=== PATIENT | female | born 1930 | race Caucasian/White ===

== ENCOUNTER 2022-03-30 01:45 | Inpatient (IN) | payer MEDICARE ==
[2022-03-30] MEDS ORDERED: Midazolam HCl 2 mg/2 ml Vial ONE (02:02)
[2022-03-30 02:13] LABS: #Basophils 0.1 10x3/uL (0.0-0.2); #Eosinphils 0.2 10x3/uL (0.0-0.5); #Monocytes 0.7 10x3/uL (0.0-1.1); #Neutrophils 6.2 10x3/uL (1.5-8.4); %Eosinophils 2.6 % (0.0-6.0); %Lymphocytes 17.9 % (18.0-47.0); %Monocytes 8.2 % (0.0-10.0); %Neutrophils 69.7 % (40.0-75.0); Hemoglobin 12.9 g/dL (12.0-15.5); Mean Corpuscular HGB CONC 33.7 g/dL (32.0-36.0); Mean Corpuscular Hemoglobin 31.5 pg (27.0-33.0); Mean Corpuscular Volume 93.6 fl (81.6-98.3); Mean Platelet Volume 9.8 fl (7.4-10.4); Platelet Count 234 10x3/uL (150-450); Red Blood Cell (RBC) Count 4.09 10x6/uL (3.90-5.03); White Blood Cell (WBC) Count 8.9 10x3/uL (3.5-10.5)
[2022-03-30 02:21] LABS: INR-International Normal Ratio 0.9; PTT 25.7 sec (22.0-33.0); Prothrombin Time 10.1 sec (9.5-12.1)
[2022-03-30 02:23] LABS: ALT (SGPT) 16 U/L (8-55); AST (SGOT) 30 U/L (5-34); Albumin 4.1 g/dL (3.4-4.8); Alkaline Phosphatase 72 U/L (40-110); Anion Gap 17 mmol/L (10-20); BUN (Urea Nitrogen) 19 mg/dL (9.8-20.1); Bilirubin, Total 0.8 mg/dL (0.2-1.2); Calc. Creatinine Clearance 0 mL/min (70-130); Calcium 9.5 mg/dL (7.8-10.44); Carbon Dioxide 24 mmol/L (23-31); Chloride 100 mmol/L (98-107); Estimated GFR 71; Globulin 2.8 g/dL (2.4-3.5); Glucose 99 mg/dL (83-110); Lipase 57 U/L (8-78); Magnesium 2.4 mg/dL (1.6-2.6); Potassium 4.1 mmol/L (3.5-5.1); Protein, Total 6.9 g/dL (5.8-8.1); Sodium 137 mmol/L (136-145)
[2022-03-30 02:42] LABS: CKMB 2.5 ng/mL (0-6.6)
[2022-03-30] MEDS ORDERED: Calcium Carbonate 500 MG ChewTAB PO PRN (04:33)
[2022-03-30] MEDS ORDERED: Ondansetron PF 4 MG/2 ML Vial IVP PRN (04:33)
[2022-03-30] MEDS ORDERED: HYDROcodone/Acetaminophen 5/325 mg Tablet PO PRN (04:33)
[2022-03-30] MEDS ORDERED: Sodium Chloride 0.9% 1,000 ML IV SCH (04:45)
[2022-03-30 06:21] LABS: Cardiac Risk 1.9 (Less than 4.5)
[2022-03-30 06:51] LABS: CKMB 20.8 ng/mL (0-6.6)
[2022-03-30 07:24] VITALS: BMI 18.8
[2022-03-30 08:07] LABS: SARS-CoV-2 NAA Rapid Test Not Detected (NotDetected)
[2022-03-30] MEDS ORDERED: Flecainide 50 MG TAB PO SCH (09:00)
[2022-03-30] MEDS ORDERED: Aspirin 81 mg Enteric Coated Tablet PO SCH (09:00)
[2022-03-30] MEDS ORDERED: Apixaban 5 MG TAB PO SCH (09:00)
[2022-03-30] MEDS ORDERED: Iopamidol 370 76% 100 ML VIAL ONE (10:17)
[2022-03-30] MEDS ORDERED: Enoxaparin Sodium 60 MG/0.6 ML SYRINGE ONE (10:37)
[2022-03-30 11:09] LABS: CKMB 35.2 ng/mL (0-6.6)
[2022-03-30] MEDS: Famotidine/PF 20 mg/2ml Vial SLOW IVP SCH (11:37)
[2022-03-30] MEDS: Nitroglycerin 2% Ointment 1 INCH/1 GM Packet TOP SCH ×2 (12:21→22:15)
[2022-03-30] MEDS ORDERED: Dronedarone HCl 400 MG TAB PO SCH ×2 (13:00→17:00)
[2022-03-30] MEDS: Enoxaparin Sodium 60 MG/0.6 ML SYRINGE SC SCH ×2 (13:35→22:15)
[2022-03-30 18:00] LABS: Bilirubin Neg (Negative); Blood, Urine 25 (Negative); Clarity Clear (Clear); Glucose, Urine (Dipstick) Normal (Negative); Ketone, Urine 15 mg/dL (Negative); Leukocyte Negative (Negative); Nitrite Negative (Negative); Protein, Urine (Dipstick) Negative (Neg-Trace); Urobilinogen Normal mg/dL (Less than 2)
[2022-03-30 18:21] LABS: Bacteria/HPF 1+ HPF (None Seen); Mucous/LPF 1+ LPF (<2+); RBC/HPF 0-3 HPF (0-3); Squamous Epithelial 0-3 HPF (0-3); WBC/HPF 0-3 HPF (0-3)
[2022-03-30] MEDS ORDERED: Lorazepam 2 MG/ML VIAL SLOW IVP SCH (18:45)
[2022-03-30] MEDS: Mometasone 200 MCG/Formoterol 5 MCG 120 PUFF INHALER INH SCH (19:00)
[2022-03-30] MEDS: Rosuvastatin 20 MG TAB PO SCH (22:15)
[2022-03-31] MEDS: Nitroglycerin 2% Ointment 1 INCH/1 GM Packet TOP SCH ×3 (05:43→21:39)
[2022-03-31] MEDS: Acetaminophen 325 MG TAB PO PRN ×2 (05:44→18:05)
[2022-03-31] MEDS ORDERED: Mometasone/Formoterol 200/5 60 PUFF INH SCH ×2 (08:15→18:30)
[2022-03-31] MEDS: Mometasone 200 MCG/Formoterol 5 MCG 120 PUFF INHALER INH SCH (08:50)
[2022-03-31] MEDS ORDERED: Amiodarone 200 MG TAB PO SCH (09:00)
[2022-03-31] MEDS: Enoxaparin Sodium 60 MG/0.6 ML SYRINGE SC SCH ×2 (10:12→21:36)
[2022-03-31] MEDS: Famotidine/PF 20 mg/2ml Vial SLOW IVP SCH (10:12)
[2022-03-31] MEDS: Dronedarone HCl 400 MG TAB PO SCH ×2 (10:12→18:05)
[2022-03-31] MEDS: Clopidogrel Bisulfate 75 MG TAB PO SCH (10:19)
[2022-03-31] MEDS: Rosuvastatin 20 MG TAB PO SCH (21:38)
[2022-04-01 03:50] VITALS: TEMP 98.1
[2022-04-01] MEDS: Acetaminophen 325 MG TAB PO PRN (05:43)
[2022-04-01] MEDS ORDERED: Levothyroxine Sodium 88 MCG TAB PO SCH (06:00)
[2022-04-01] MEDS: Nitroglycerin 2% Ointment 1 INCH/1 GM Packet TOP SCH (06:49)
[2022-04-01] MEDS: Clopidogrel Bisulfate 75 MG TAB PO SCH (08:50)
[2022-04-01] MEDS: Famotidine/PF 20 mg/2ml Vial SLOW IVP SCH (08:51)
[2022-04-01] MEDS: Dronedarone HCl 400 MG TAB PO SCH (08:51)
[2022-04-01] MEDS: Enoxaparin Sodium 60 MG/0.6 ML SYRINGE SC SCH (08:51)
[2022-04-01] MEDS ORDERED: predniSONE 5 MG TAB PO SCH (09:00)
[2022-04-01 11:48] VITALS: BP 109/54
== END 2022-04-01 12:32 | disposition home or self-care (01) | DRG 64 ==
LOC: CSHERS 01:45 → CSHTELE 07:17
PROVIDERS: ADMIT Student in an Organized Health Care Education/Training Program; ATTEND Internal Medicine
DX: I63.512 Cerebral infarction due to unspecified occlusion or stenosis of left middle cerebral artery (principal); I21.4 Non-ST elevation (NSTEMI) myocardial infarction; Z20.822 Contact with and (suspected) exposure to COVID-19; R47.01 Aphasia; I48.0 Paroxysmal atrial fibrillation; E03.9 Hypothyroidism, unspecified; Z66 Do not resuscitate; M06.9 Rheumatoid arthritis, unspecified; R29.810 Facial weakness; G83.21 Monoplegia of upper limb affecting right dominant side; R47.1 Dysarthria and anarthria; Z60.2 Problems related to living alone; E86.0 Dehydration; I34.1 Nonrheumatic mitral (valve) prolapse; M81.0 Age-related osteoporosis without current pathological fracture; K21.9 Gastro-esophageal reflux disease without esophagitis; J44.9 Chronic obstructive pulmonary disease, unspecified; Z90.49 Acquired absence of other specified parts of digestive tract; Z85.038 Personal history of other malignant neoplasm of large intestine; Z88.6 Allergy status to analgesic agent; Z79.01 Long term (current) use of anticoagulants; Z90.89 Acquired absence of other organs; Z98.41 Cataract extraction status, right eye; Z98.42 Cataract extraction status, left eye; Z82.49 Family history of ischemic heart disease and other diseases of the circulatory system; Z88.8 Allergy status to other drugs, medicaments and biological substances
CPT/HCPCS: 36415; 70450; 70496; 70498; 71045; 80053; 80061; 81001; 82553; 83690; 83735; 84439; 84443; 84484; 85025; 85610; 85730; 86850; 86900; 86901; 87040; 87086; 93005; 93010; 93306; 94664; J1650; J2060; J2250; J7050; J7512; Q9967; S0028; U0002

== ENCOUNTER 2022-04-21 23:14 | Inpatient (IN) | payer MEDICARE ==
[2022-04-21] MEDS ORDERED: Diltiazem 125 MG/25 ML ONE (23:50)
[2022-04-22 00:48] LABS: #Basophils 0.1 10x3/uL (0.0-0.2); #Eosinphils 0.9 10x3/uL (0.0-0.5); #Monocytes 0.9 10x3/uL (0.0-1.1); #Neutrophils 7.4 10x3/uL (1.5-8.4); %Basophils 0.6 % (0.0-2.0); %Eosinophils 8.7 % (0.0-6.0); %Lymphocytes 10.1 % (18.0-47.0); %Monocytes 8.3 % (0.0-10.0); %Neutrophils 71.8 % (40.0-75.0); Hemoglobin 12.4 g/dL (12.0-15.5); Mean Corpuscular HGB CONC 33.2 g/dL (32.0-36.0); Mean Corpuscular Hemoglobin 31.6 pg (27.0-33.0); Mean Corpuscular Volume 95.2 fl (81.6-98.3); Mean Platelet Volume 9.7 fl (7.4-10.4); Platelet Count 242 10x3/uL (150-450); RBC Distribution Width 15.1 % (11.5-14.5); Red Blood Cell (RBC) Count 3.92 10x6/uL (3.90-5.03); White Blood Cell (WBC) Count 10.3 10x3/uL (3.5-10.5)
[2022-04-22 01:02] LABS: ALT (SGPT) 18 U/L (8-55); AST (SGOT) 24 U/L (5-34); Albumin 3.8 g/dL (3.4-4.8); Alkaline Phosphatase 86 U/L (40-110); Anion Gap 15 mmol/L (10-20); BUN (Urea Nitrogen) 15 mg/dL (9.8-20.1); Bilirubin, Total 1.2 mg/dL (0.2-1.2); Calc. Creatinine Clearance 0 mL/min (70-130); Carbon Dioxide 23 mmol/L (23-31); Chloride 102 mmol/L (98-107); Estimated GFR 66; Globulin 2.7 g/dL (2.4-3.5); Glucose 105 mg/dL (83-110); Magnesium 2.5 mg/dL (1.6-2.6); Potassium 3.7 mmol/L (3.5-5.1); Protein, Total 6.5 g/dL (5.8-8.1); Sodium 136 mmol/L (136-145)
[2022-04-22 01:23] LABS: CKMB 1.5 ng/mL (0-6.6)
[2022-04-22 01:37] LABS: SARS-CoV-2 NAA Rapid Test Not Detected (NotDetected)
[2022-04-22] MEDS ORDERED: Guaifenesin DM 100-10/5 ML UDCUP PO PRN (01:51)
[2022-04-22] MEDS ORDERED: Ondansetron PF 4 MG/2 ML Vial IVP PRN (01:51)
[2022-04-22] MEDS ORDERED: Senokot S 8.6-50 MG TAB PO PRN (01:51)
[2022-04-22] MEDS ORDERED: Acetaminophen 325 MG TAB PO PRN (01:51)
[2022-04-22] MEDS ORDERED: Calcium Carbonate 500 MG ChewTAB PO PRN (01:51)
[2022-04-22] MEDS ORDERED: Digoxin 0.5 MG/2 ML AMP ONE (01:56)
[2022-04-22] MEDS ORDERED: Diltiazem 125 MG, Admixture Fee 1 EACH in Sodium Chloride 0.9% 100 ML IVPB SCH (03:00)
[2022-04-22] MEDS ORDERED: Potassium Chloride 20 MEQ TAB PO SCH (03:00)
[2022-04-22 03:37] VITALS: BMI 18.1
[2022-04-22 04:58] LABS: Anion Gap 17 mmol/L (10-20); BUN (Urea Nitrogen) 13 mg/dL (9.8-20.1); Calc. Creatinine Clearance 38 mL/min (70-130); Calcium 8.7 mg/dL (7.8-10.44); Carbon Dioxide 20 mmol/L (23-31); Chloride 102 mmol/L (98-107); Estimated GFR 75; Glucose 102 mg/dL (83-110); Potassium 3.8 mmol/L (3.5-5.1); Sodium 135 mmol/L (136-145)
[2022-04-22 05:13] LABS: CKMB 1.5 ng/mL (0-6.6)
[2022-04-22] MEDS: Levothyroxine Sodium 88 MCG TAB PO SCH (05:46)
[2022-04-22] MEDS: Budesonide 0.25 MG/2 ML NEB INH SCH ×2 (07:18→20:30)
[2022-04-22] MEDS: Furosemide 20 MG TAB PO SCH ×2 (08:10)
[2022-04-22] MEDS: predniSONE 5 MG TAB PO SCH (08:10)
[2022-04-22] MEDS: Clopidogrel Bisulfate 75 MG TAB PO SCH (08:10)
[2022-04-22] MEDS: Apixaban 2.5 MG TAB PO SCH ×2 (08:10→20:44)
[2022-04-22 08:59] LABS: CKMB 1.3 ng/mL (0-6.6)
[2022-04-22] MEDS ORDERED: Flecainide 50 MG TAB PO SCH ×2 (09:00→09:15)
[2022-04-22] MEDS: Flecainide 50 MG TAB PO SCH (20:45)
[2022-04-22] MEDS ORDERED: Rosuvastatin 20 MG TAB PO SCH (21:00)
[2022-04-23] MEDS ORDERED: Metoprolol Tartrate 5 MG/5 ML VIAL IVP SCH (03:30)
[2022-04-23 04:48] VITALS: BP 117/72; TEMP 98.1
[2022-04-23] MEDS: Levothyroxine Sodium 88 MCG TAB PO SCH (06:03)
[2022-04-23] MEDS: Budesonide 0.25 MG/2 ML NEB INH SCH (09:19)
[2022-04-23 09:44] LABS: Anion Gap 15 mmol/L (10-20); BUN (Urea Nitrogen) 11 mg/dL (9.8-20.1); Calc. Creatinine Clearance 38 mL/min (70-130); Calcium 8.6 mg/dL (7.8-10.44); Carbon Dioxide 20 mmol/L (23-31); Chloride 102 mmol/L (98-107); Estimated GFR 74; Glucose 111 mg/dL (83-110); Magnesium 2.2 mg/dL (1.6-2.6); Potassium 4.7 mmol/L (3.5-5.1); Sodium 132 mmol/L (136-145)
[2022-04-23] MEDS: Apixaban 2.5 MG TAB PO SCH (09:54)
[2022-04-23] MEDS: Clopidogrel Bisulfate 75 MG TAB PO SCH (09:54)
[2022-04-23] MEDS: Flecainide 50 MG TAB PO SCH (09:54)
[2022-04-23] MEDS: predniSONE 5 MG TAB PO SCH (09:54)
[2022-04-23] MEDS: Furosemide 20 MG TAB PO SCH (09:54)
[2022-04-23] MEDS ORDERED: Digoxin 0.5 MG/2 ML AMP SLOW IVP SCH (10:00)
== END 2022-04-23 15:40 | disposition home or self-care (01) | DRG 281 ==
LOC: CSHERS 23:14 → CSHIMCU 04-22 02:32
PROVIDERS: ADMIT Student in an Organized Health Care Education/Training Program; ATTEND Internal Medicine
PROC: 5A2204Z Restoration of Cardiac Rhythm, Single (ICD-10-PCS; principal; 2022-04-23)
DX: I48.0 Paroxysmal atrial fibrillation (principal); I21.A1 Myocardial infarction type 2; Z68.1 Body mass index [BMI] 19.9 or less, adult; M06.9 Rheumatoid arthritis, unspecified; E03.9 Hypothyroidism, unspecified; R63.6 Underweight; Z66 Do not resuscitate; N18.2 Chronic kidney disease, stage 2 (mild); Z20.822 Contact with and (suspected) exposure to COVID-19; I08.0 Rheumatic disorders of both mitral and aortic valves; J44.9 Chronic obstructive pulmonary disease, unspecified; Z88.5 Allergy status to narcotic agent; Z79.01 Long term (current) use of anticoagulants; Z79.899 Other long term (current) drug therapy; Z86.73 Personal history of transient ischemic attack (TIA), and cerebral infarction without residual deficits; Z85.038 Personal history of other malignant neoplasm of large intestine; Z98.890 Other specified postprocedural states
CPT/HCPCS: 36415; 71045; 80048; 80053; 82553; 83735; 83880; 84484; 85025; 92960; 93005; 94640; 94760; 96374; 96375; 96376; J1160; J3490; J7512; J7626; U0002

== ENCOUNTER 2022-04-26 21:52 | Inpatient (IN) | payer MEDICARE ==
[2022-04-26 23:14] LABS: #Basophils 0.1 10x3/uL (0.0-0.2); #Eosinphils 0.3 10x3/uL (0.0-0.5); #Monocytes 0.7 10x3/uL (0.0-1.1); #Neutrophils 6.6 10x3/uL (1.5-8.4); %Basophils 0.8 % (0.0-2.0); %Eosinophils 3.5 % (0.0-6.0); %Lymphocytes 6.9 % (18.0-47.0); %Monocytes 8.8 % (0.0-10.0); %Neutrophils 79.6 % (40.0-75.0); Hemoglobin 11.7 g/dL (12.0-15.5); Mean Corpuscular HGB CONC 33.3 g/dL (32.0-36.0); Mean Corpuscular Hemoglobin 30.9 pg (27.0-33.0); Mean Corpuscular Volume 92.6 fl (81.6-98.3); Mean Platelet Volume 9.4 fl (7.4-10.4); Platelet Count 291 10x3/uL (150-450); RBC Distribution Width 14.6 % (11.5-14.5); Red Blood Cell (RBC) Count 3.79 10x6/uL (3.90-5.03); White Blood Cell (WBC) Count 8.3 10x3/uL (3.5-10.5)
[2022-04-26 23:22] LABS: ALT (SGPT) 63 U/L (8-55); AST (SGOT) 66 U/L (5-34); Albumin 3.5 g/dL (3.4-4.8); Alkaline Phosphatase 141 U/L (40-110); Anion Gap 15 mmol/L (10-20); BUN (Urea Nitrogen) 17 mg/dL (9.8-20.1); Calc. Creatinine Clearance 0 mL/min (70-130); Carbon Dioxide 26 mmol/L (23-31); Chloride 98 mmol/L (98-107); Estimated GFR 57; Globulin 2.7 g/dL (2.4-3.5); Glucose 115 mg/dL (83-110); Potassium 3.7 mmol/L (3.5-5.1); Protein, Total 6.2 g/dL (5.8-8.1); Sodium 135 mmol/L (136-145)
[2022-04-26] MEDS ORDERED: Diltiazem 125 MG/25 ML ONE (23:32)
[2022-04-26 23:47] LABS: SARS-CoV-2 NAA Rapid Test Not Detected (NotDetected)
[2022-04-27 02:07] LABS: Magnesium 2.4 mg/dL (1.6-2.6)
[2022-04-27] MEDS ORDERED: Milk Of Magnesia 30 ML UDCUP PO PRN (02:24)
[2022-04-27] MEDS ORDERED: Diltiazem 125 MG in Sodium Chloride 0.9% 100 ML IVPB SCH (02:30)
[2022-04-27] MEDS ORDERED: Apixaban 2.5 MG TAB PO SCH (02:30)
[2022-04-27 02:41] VITALS: BMI 16.9
[2022-04-27] MEDS ORDERED: Potassium Chloride 20 MEQ TAB PO SCH (03:15)
[2022-04-27 03:16] LABS: Troponin I 0.018 ng/mL (< 0.028)
[2022-04-27] MEDS: Levothyroxine Sodium 88 MCG TAB PO SCH (05:49)
[2022-04-27 07:21] LABS: #Basophils 0.1 10x3/uL (0.0-0.2); #Monocytes 0.5 10x3/uL (0.0-1.1); #Neutrophils 7.2 10x3/uL (1.5-8.4); %Basophils 0.6 % (0.0-2.0); %Eosinophils 0.2 % (0.0-6.0); %Neutrophils 86.8 % (40.0-75.0); Hemoglobin 11.4 g/dL (12.0-15.5); Mean Corpuscular HGB CONC 33.1 g/dL (32.0-36.0); Mean Corpuscular Hemoglobin 30.9 pg (27.0-33.0); Mean Corpuscular Volume 93.2 fl (81.6-98.3); Mean Platelet Volume 9.5 fl (7.4-10.4); Platelet Count 298 10x3/uL (150-450); RBC Distribution Width 14.6 % (11.5-14.5); Red Blood Cell (RBC) Count 3.69 10x6/uL (3.90-5.03); White Blood Cell (WBC) Count 8.3 10x3/uL (3.5-10.5)
[2022-04-27 07:34] LABS: Anion Gap 14 mmol/L (10-20); BUN (Urea Nitrogen) 14 mg/dL (9.8-20.1); Calc. Creatinine Clearance 37 mL/min (70-130); Calcium 8.9 mg/dL (7.8-10.44); Carbon Dioxide 24 mmol/L (23-31); Chloride 101 mmol/L (98-107); Estimated GFR 79; Glucose 105 mg/dL (83-110); Potassium 4.6 mmol/L (3.5-5.1); Sodium 134 mmol/L (136-145)
[2022-04-27 07:37] LABS: Troponin I 0.023 ng/mL (< 0.028)
[2022-04-27] MEDS ORDERED: Flecainide 50 MG TAB PO SCH (09:00)
[2022-04-27] MEDS: predniSONE 5 MG TAB PO SCH (09:25)
[2022-04-27] MEDS: Clopidogrel Bisulfate 75 MG TAB PO SCH (09:25)
[2022-04-27] MEDS: Apixaban 2.5 MG TAB PO SCH ×2 (09:25→20:52)
[2022-04-27] MEDS: Rosuvastatin 20 MG TAB PO SCH (20:52)
[2022-04-28] MEDS ORDERED: Diltiazem 125 MG in Sodium Chloride 0.9% 100 ML IVPB SCH (02:00)
[2022-04-28] MEDS ORDERED: ALPRAZolam 0.25 MG TAB PO SCH (03:15)
[2022-04-28] MEDS ORDERED: Digoxin 0.5 MG/2 ML AMP SLOW IVP SCH (03:30)
[2022-04-28] MEDS: Diltiazem 125 MG in Sodium Chloride 0.9% 100 ML IVPB SCH ×2 (03:44→19:29)
[2022-04-28] MEDS ORDERED: Morphine 2 MG/ML VIAL SLOW IVP SCH (05:00)
[2022-04-28 05:14] LABS: Troponin I 0.013 ng/mL (< 0.028)
[2022-04-28 05:25] LABS: #Basophils 0.1 10x3/uL (0.0-0.2); #Eosinphils 0.4 10x3/uL (0.0-0.5); #Monocytes 0.7 10x3/uL (0.0-1.1); %Basophils 0.9 % (0.0-2.0); %Eosinophils 3.2 % (0.0-6.0); %Monocytes 5.8 % (0.0-10.0); %Neutrophils 79.6 % (40.0-75.0); Hemoglobin 13.2 g/dL (12.0-15.5); Mean Corpuscular HGB CONC 33.2 g/dL (32.0-36.0); Mean Corpuscular Hemoglobin 31.3 pg (27.0-33.0); Mean Corpuscular Volume 94.1 fl (81.6-98.3); Mean Platelet Volume 9.5 fl (7.4-10.4); Platelet Count 395 10x3/uL (150-450); RBC Distribution Width 14.9 % (11.5-14.5); Red Blood Cell (RBC) Count 4.22 10x6/uL (3.90-5.03); White Blood Cell (WBC) Count 11.3 10x3/uL (3.5-10.5)
[2022-04-28 05:47] LABS: Anion Gap 16 mmol/L (10-20); BUN (Urea Nitrogen) 15 mg/dL (9.8-20.1); Calc. Creatinine Clearance 34 mL/min (70-130); Carbon Dioxide 23 mmol/L (23-31); Chloride 102 mmol/L (98-107); Estimated GFR 70; Glucose 118 mg/dL (83-110); Magnesium 2.2 mg/dL (1.6-2.6); Sodium 137 mmol/L (136-145)
[2022-04-28] MEDS: Levothyroxine Sodium 88 MCG TAB PO SCH (06:26)
[2022-04-28] MEDS: Dofetilide 0.125 MG CAP PO SCH ×2 (08:31→21:11)
[2022-04-28] MEDS: Acetaminophen 325 MG TAB PO PRN (08:31)
[2022-04-28] MEDS: Clopidogrel Bisulfate 75 MG TAB PO SCH (08:32)
[2022-04-28] MEDS: Apixaban 2.5 MG TAB PO SCH ×2 (08:32→21:11)
[2022-04-28] MEDS: predniSONE 5 MG TAB PO SCH (08:32)
[2022-04-28] MEDS ORDERED: Lidocaine 5% Patch TD SCH (10:00)
[2022-04-28] MEDS: HYDROcodone/Acetaminophen 5/325 mg Tablet PO PRN (10:26)
[2022-04-28] MEDS: Lidocaine 2% Viscous Solution 10 ML, Aluminum & Magnesium Hydroxide 30 ML SSW SCH ×2 (10:34→13:51)
[2022-04-28] MEDS: Rosuvastatin 20 MG TAB PO SCH (21:11)
[2022-04-28] MEDS ORDERED: Transdermal Patch Removal TOP SCH (22:00)
[2022-04-29] MEDS: Levothyroxine Sodium 88 MCG TAB PO SCH (05:22)
[2022-04-29] MEDS: Morphine 2 MG/ML VIAL SLOW IVP PRN ×2 (05:23→10:05)
[2022-04-29] MEDS: Apixaban 2.5 MG TAB PO SCH ×2 (09:12→21:03)
[2022-04-29] MEDS: Clopidogrel Bisulfate 75 MG TAB PO SCH (09:12)
[2022-04-29] MEDS: Dofetilide 0.125 MG CAP PO SCH ×2 (09:12→21:03)
[2022-04-29] MEDS: predniSONE 5 MG TAB PO SCH (09:12)
[2022-04-29] MEDS: Acetaminophen 325 MG TAB PO PRN (09:26)
[2022-04-29] MEDS ORDERED: Lidocaine 5% Patch TD SCH (10:00)
[2022-04-29] MEDS ORDERED: Meloxicam 7.5 MG TAB PO SCH (11:00)
[2022-04-29] MEDS: Diltiazem 125 MG in Sodium Chloride 0.9% 100 ML IVPB SCH (11:00)
[2022-04-29] MEDS ORDERED: Lorazepam 20 MG/10 ML MDV (1ml Chg) IVP SCH (15:45)
[2022-04-29] MEDS ORDERED: Iopamidol 370 76% 100 ML VIAL ONE (16:11)
[2022-04-29 18:27] LABS: #Neutrophils 12.3 10x3/uL (1.5-8.4); %Basophils 0.2 % (0.0-2.0); %Eosinophils 0.1 % (0.0-6.0); %Lymphocytes 3.9 % (18.0-47.0); %Monocytes 7.4 % (0.0-10.0); Hemoglobin 11.8 g/dL (12.0-15.5); Mean Corpuscular HGB CONC 33.1 g/dL (32.0-36.0); Mean Corpuscular Volume 93.4 fl (81.6-98.3); Mean Platelet Volume 9.7 fl (7.4-10.4); Platelet Count 332 10x3/uL (150-450); RBC Distribution Width 14.8 % (11.5-14.5); Red Blood Cell (RBC) Count 3.81 10x6/uL (3.90-5.03)
[2022-04-29 18:39] LABS: ALT (SGPT) 58 U/L (8-55); AST (SGOT) 37 U/L (5-34); Albumin 3.3 g/dL (3.4-4.8); Alkaline Phosphatase 117 U/L (40-110); Anion Gap 16 mmol/L (10-20); BUN (Urea Nitrogen) 21 mg/dL (9.8-20.1); Bilirubin, Total 0.9 mg/dL (0.2-1.2); Calc. Creatinine Clearance 32 mL/min (70-130); Calcium 8.4 mg/dL (7.8-10.44); Carbon Dioxide 19 mmol/L (23-31); Chloride 99 mmol/L (98-107); Estimated GFR 65; Globulin 2.5 g/dL (2.4-3.5); Glucose 133 mg/dL (83-110); Magnesium 2.5 mg/dL (1.6-2.6); Potassium 4.7 mmol/L (3.5-5.1); Protein, Total 5.8 g/dL (5.8-8.1); Sodium 129 mmol/L (136-145)
[2022-04-29] MEDS: Rosuvastatin 20 MG TAB PO SCH (21:02)
[2022-04-29] MEDS: Melatonin 3 MG TAB PO PRN (21:04)
[2022-04-29] MEDS ORDERED: Transdermal Patch Removal TOP SCH (22:00)
[2022-04-30] MEDS: Acetaminophen 325 MG TAB PO PRN (02:03)
[2022-04-30] MEDS: Diltiazem 125 MG in Sodium Chloride 0.9% 100 ML IVPB SCH ×2 (02:31→22:17)
[2022-04-30] MEDS: Levothyroxine Sodium 88 MCG TAB PO SCH (06:13)
[2022-04-30] MEDS ORDERED: Furosemide 40 MG/4 ML VIAL SLOW IVP SCH (08:00)
[2022-04-30] MEDS: Apixaban 2.5 MG TAB PO SCH ×2 (08:13→20:51)
[2022-04-30] MEDS: Clopidogrel Bisulfate 75 MG TAB PO SCH (08:13)
[2022-04-30] MEDS: Dofetilide 0.125 MG CAP PO SCH ×2 (08:13→20:51)
[2022-04-30] MEDS: predniSONE 10 MG TAB PO SCH (08:17)
[2022-04-30] MEDS: Meloxicam 7.5 MG TAB PO SCH (09:01)
[2022-04-30] MEDS ORDERED: Metoprolol Tartrate 25 MG TAB PO SCH (13:30)
[2022-04-30] MEDS ORDERED: ALPRAZolam 0.5 MG TAB PO SCH (20:30)
[2022-04-30] MEDS: Melatonin 3 MG TAB PO PRN (20:51)
[2022-04-30] MEDS: Rosuvastatin 20 MG TAB PO SCH (20:51)
[2022-04-30] MEDS: Metoprolol Tartrate 25 MG TAB PO SCH (20:51)
[2022-05-01] MEDS: Levothyroxine Sodium 88 MCG TAB PO SCH (06:19)
[2022-05-01] MEDS: Acetaminophen 325 MG TAB PO PRN (08:34)
[2022-05-01] MEDS: Dofetilide 0.125 MG CAP PO SCH ×2 (08:37→20:11)
[2022-05-01] MEDS: predniSONE 10 MG TAB PO SCH (08:38)
[2022-05-01] MEDS: Clopidogrel Bisulfate 75 MG TAB PO SCH (08:38)
[2022-05-01] MEDS: Apixaban 2.5 MG TAB PO SCH ×2 (08:38→21:23)
[2022-05-01] MEDS: Furosemide 40 MG/4 ML VIAL SLOW IVP SCH (08:39)
[2022-05-01] MEDS: Metoprolol Tartrate 25 MG TAB PO SCH ×2 (08:39→20:09)
[2022-05-01] MEDS: Meloxicam 7.5 MG TAB PO SCH (08:40)
[2022-05-01 14:53] LABS: Hemoglobin 12.3 g/dL (12.0-15.5); Mean Corpuscular HGB CONC 32.9 g/dL (32.0-36.0); Mean Corpuscular Hemoglobin 30.8 pg (27.0-33.0); Mean Corpuscular Volume 93.7 fl (81.6-98.3); Mean Platelet Volume 9.6 fl (7.4-10.4); Platelet Count 404 10x3/uL (150-450); RBC Distribution Width 14.7 % (11.5-14.5); Red Blood Cell (RBC) Count 3.99 10x6/uL (3.90-5.03); White Blood Cell (WBC) Count 11.7 10x3/uL (3.5-10.5)
[2022-05-01 15:19] LABS: Anion Gap 17 mmol/L (10-20); BUN (Urea Nitrogen) 22 mg/dL (9.8-20.1); Calc. Creatinine Clearance 29 mL/min (70-130); Calcium 8.6 mg/dL (7.8-10.44); Carbon Dioxide 23 mmol/L (23-31); Chloride 98 mmol/L (98-107); Estimated GFR 59; Glucose 128 mg/dL (83-110); Magnesium 2.3 mg/dL (1.6-2.6); Potassium 3.5 mmol/L (3.5-5.1); Sodium 134 mmol/L (136-145)
[2022-05-01 17:38] LABS: Bilirubin Neg (Negative); Blood, Urine Negative (Negative); Clarity Clear (Clear); Glucose, Urine (Dipstick) Normal (Negative); Ketone, Urine Negative (Negative); Leukocyte Negative (Negative); Nitrite Negative (Negative); Protein, Urine (Dipstick) Negative (Neg-Trace); Urobilinogen Normal mg/dL (Less than 2)
[2022-05-01 17:40] LABS: Urine Culture Reflex No No
[2022-05-01 17:55] LABS: RBC/HPF None Seen HPF (0-3); Squamous Epithelial 0-3 HPF (0-3); WBC/HPF 0-3 HPF (0-3)
[2022-05-01 17:56] LABS: Bacteria/HPF 2+ HPF (None Seen); Transitional Epithelial 0-3 HPF (None Seen)
[2022-05-01] MEDS: Rosuvastatin 20 MG TAB PO SCH (20:10)
[2022-05-01] MEDS: Melatonin 3 MG TAB PO PRN (22:59)
[2022-05-02] MEDS ORDERED: Metoprolol Tartrate 25 MG TAB PO SCH (01:45)
[2022-05-02] MEDS ORDERED: Metoprolol Tartrate 5 MG/5 ML VIAL IVP SCH (06:45)
[2022-05-02] MEDS: Levothyroxine Sodium 88 MCG TAB PO SCH (06:50)
[2022-05-02] MEDS: Clopidogrel Bisulfate 75 MG TAB PO SCH (07:26)
[2022-05-02] MEDS: Meloxicam 7.5 MG TAB PO SCH (07:26)
[2022-05-02] MEDS: Metoprolol Tartrate 25 MG TAB PO SCH ×4 (07:32→20:26)
[2022-05-02] MEDS: Apixaban 2.5 MG TAB PO SCH ×2 (07:32→20:26)
[2022-05-02] MEDS: predniSONE 5 MG TAB PO SCH (07:32)
[2022-05-02] MEDS: Dofetilide 0.125 MG CAP PO SCH ×2 (07:33→20:26)
[2022-05-02] MEDS ORDERED: Digoxin 0.5 MG/2 ML AMP SLOW IVP SCH (08:30)
[2022-05-02] MEDS ORDERED: Potassium Chloride 20 MEQ TAB PO SCH (09:15)
[2022-05-02] MEDS ORDERED: PROPOFOL 20 ML ONE (09:43)
[2022-05-02] MEDS: Furosemide 40 MG/4 ML VIAL SLOW IVP SCH (14:17)
[2022-05-02] MEDS: Calcium Carbonate 500 MG ChewTAB PO PRN (19:53)
[2022-05-02] MEDS: Rosuvastatin 20 MG TAB PO SCH (20:27)
[2022-05-02] MEDS: Melatonin 3 MG TAB PO PRN (23:44)
[2022-05-03] MEDS: Calcium Carbonate 500 MG ChewTAB PO PRN ×2 (03:43→15:02)
[2022-05-03] MEDS: Levothyroxine Sodium 88 MCG TAB PO SCH (05:41)
[2022-05-03] MEDS: HYDROcodone/Acetaminophen 5/325 mg Tablet PO PRN (05:41)
[2022-05-03] MEDS ORDERED: Digoxin 0.5 MG/2 ML AMP SLOW IVP SCH (07:45)
[2022-05-03] MEDS: predniSONE 5 MG TAB PO SCH (08:37)
[2022-05-03] MEDS: Apixaban 2.5 MG TAB PO SCH ×2 (08:37→20:28)
[2022-05-03] MEDS: Metoprolol Tartrate 25 MG TAB PO SCH ×3 (08:37→20:28)
[2022-05-03] MEDS: Dofetilide 0.125 MG CAP PO SCH (08:38)
[2022-05-03] MEDS: Meloxicam 7.5 MG TAB PO SCH (08:38)
[2022-05-03] MEDS: Clopidogrel Bisulfate 75 MG TAB PO SCH (08:38)
[2022-05-03] MEDS: Diltiazem 125 MG in Sodium Chloride 0.9% 100 ML IVPB SCH (09:00)
[2022-05-03 10:05] LABS: Potassium 4.4 mmol/L (3.5-5.1)
[2022-05-03 10:24] LABS: Anion Gap 14 mmol/L (10-20); BUN (Urea Nitrogen) 26 mg/dL (9.8-20.1); Calc. Creatinine Clearance 30 mL/min (70-130); Calcium 8.2 mg/dL (7.8-10.44); Carbon Dioxide 22 mmol/L (23-31); Chloride 100 mmol/L (98-107); Estimated GFR 61; Glucose 119 mg/dL (83-110); Potassium 4.5 mmol/L (3.5-5.1); Sodium 131 mmol/L (136-145)
[2022-05-03] MEDS: Rosuvastatin 20 MG TAB PO SCH (20:28)
[2022-05-03] MEDS: Melatonin 3 MG TAB PO PRN (21:02)
[2022-05-04] MEDS: Acetaminophen 325 MG TAB PO PRN (04:58)
[2022-05-04] MEDS: Levothyroxine Sodium 88 MCG TAB PO SCH (05:02)
[2022-05-04 06:38] LABS: Anion Gap 16 mmol/L (10-20); BUN (Urea Nitrogen) 23 mg/dL (9.8-20.1); Calc. Creatinine Clearance 33 mL/min (70-130); Calcium 8.4 mg/dL (7.8-10.44); Carbon Dioxide 22 mmol/L (23-31); Chloride 99 mmol/L (98-107); Estimated GFR 68; Glucose 102 mg/dL (83-110); Magnesium 2.5 mg/dL (1.6-2.6); Potassium 4.8 mmol/L (3.5-5.1); Sodium 132 mmol/L (136-145)
[2022-05-04] MEDS: Metoprolol Tartrate 25 MG TAB PO SCH ×3 (08:53→21:32)
[2022-05-04] MEDS: Apixaban 2.5 MG TAB PO SCH ×2 (08:53→21:31)
[2022-05-04] MEDS: Clopidogrel Bisulfate 75 MG TAB PO SCH (08:54)
[2022-05-04] MEDS: Digoxin 0.125 MG TAB PO SCH (08:59)
[2022-05-04] MEDS: Meloxicam 7.5 MG TAB PO SCH (08:59)
[2022-05-04] MEDS: predniSONE 5 MG TAB PO SCH (08:59)
[2022-05-04] MEDS: cefTRIAXone\\ROCEPHIN 1 GM in Sodium Chloride 0.9% 100 ML IVPB SCH (11:09)
[2022-05-04] MEDS: Melatonin 3 MG TAB PO PRN (21:31)
[2022-05-04] MEDS: Rosuvastatin 20 MG TAB PO SCH (21:32)
[2022-05-04] MEDS: Famotidine 20 MG TAB PO SCH (21:32)
[2022-05-05] MEDS: Levothyroxine Sodium 88 MCG TAB PO SCH ×2 (05:44→05:48)
[2022-05-05] MEDS: Meloxicam 7.5 MG TAB PO SCH (09:01)
[2022-05-05] MEDS: predniSONE 5 MG TAB PO SCH (09:01)
[2022-05-05] MEDS: Apixaban 2.5 MG TAB PO SCH ×2 (09:01→22:00)
[2022-05-05] MEDS: Digoxin 0.125 MG TAB PO SCH (09:01)
[2022-05-05] MEDS: Clopidogrel Bisulfate 75 MG TAB PO SCH (09:01)
[2022-05-05] MEDS: Metoprolol Tartrate 25 MG TAB PO SCH ×2 (09:02→22:00)
[2022-05-05] MEDS: cefTRIAXone\\ROCEPHIN 1 GM in Sodium Chloride 0.9% 100 ML IVPB SCH (09:03)
[2022-05-05] MEDS ORDERED: Chloraseptic Spray 180 ml Bottle PO PRN (09:43)
[2022-05-05] MEDS ORDERED: Cepastat Lozenges 1 LOZ PO PRN (09:43)
[2022-05-05] MEDS: Acetaminophen 325 MG TAB PO PRN (17:55)
[2022-05-05] MEDS: Famotidine 20 MG TAB PO SCH (22:00)
[2022-05-05] MEDS: Rosuvastatin 20 MG TAB PO SCH (22:00)
[2022-05-05] MEDS: Mirtazapine 15 MG TAB PO SCH (22:00)
[2022-05-06] MEDS: Apixaban 2.5 MG TAB PO SCH ×2 (09:58→22:14)
[2022-05-06] MEDS: Digoxin 0.125 MG TAB PO SCH (10:00)
[2022-05-06] MEDS: Clopidogrel Bisulfate 75 MG TAB PO SCH (10:01)
[2022-05-06] MEDS: Metoprolol Tartrate 25 MG TAB PO SCH ×2 (10:02→22:15)
[2022-05-06] MEDS: Meloxicam 7.5 MG TAB PO SCH (10:10)
[2022-05-06] MEDS: predniSONE 5 MG TAB PO SCH (10:11)
[2022-05-06] MEDS: cefTRIAXone\\ROCEPHIN 1 GM in Sodium Chloride 0.9% 100 ML IVPB SCH (10:12)
[2022-05-06] MEDS: guaiFENesin ER 600 MG TAB PO SCH (22:15)
[2022-05-06] MEDS: Rosuvastatin 20 MG TAB PO SCH (22:15)
[2022-05-06] MEDS: Mirtazapine 15 MG TAB PO SCH (22:15)
[2022-05-06] MEDS: Famotidine 20 MG TAB PO SCH (22:15)
[2022-05-07] MEDS: Levothyroxine Sodium 88 MCG TAB PO SCH (05:34)
[2022-05-07] MEDS: predniSONE 5 MG TAB PO SCH (08:35)
[2022-05-07] MEDS: guaiFENesin ER 600 MG TAB PO SCH (08:35)
[2022-05-07] MEDS: Meloxicam 7.5 MG TAB PO SCH (08:36)
[2022-05-07] MEDS: Apixaban 2.5 MG TAB PO SCH (08:36)
[2022-05-07] MEDS: Digoxin 0.125 MG TAB PO SCH (08:37)
[2022-05-07] MEDS: Clopidogrel Bisulfate 75 MG TAB PO SCH (08:37)
[2022-05-07] MEDS: Metoprolol Tartrate 25 MG TAB PO SCH (08:39)
[2022-05-07 08:40] VITALS: TEMP 98.2
[2022-05-07] MEDS: cefTRIAXone\\ROCEPHIN 1 GM in Sodium Chloride 0.9% 100 ML IVPB SCH (08:48)
[2022-05-07 11:36] LABS: Anion Gap 15 mmol/L (10-20); BUN (Urea Nitrogen) 28 mg/dL (9.8-20.1); Calc. Creatinine Clearance 26 mL/min (70-130); Calcium 8.4 mg/dL (7.8-10.44); Carbon Dioxide 23 mmol/L (23-31); Chloride 100 mmol/L (98-107); Estimated GFR 51; Glucose 95 mg/dL (83-110); Magnesium 2.5 mg/dL (1.6-2.6); Potassium 4.6 mmol/L (3.5-5.1); Sodium 133 mmol/L (136-145)
[2022-05-07 11:41] VITALS: BP 112/52
== END 2022-05-07 16:47 | DRG 309 ==
LOC: CSHERS 21:52 → CSHTELE 04-27 02:34
PROVIDERS: ADMIT Family Medicine; ATTEND Family Medicine
PROC: 5A2204Z Restoration of Cardiac Rhythm, Single (ICD-10-PCS; principal; 2022-05-02)
DX: I48.19 Other persistent atrial fibrillation (principal); I31.3 Pericardial effusion (noninflammatory); I50.32 Chronic diastolic (congestive) heart failure; N39.0 Urinary tract infection, site not specified; I48.0 Paroxysmal atrial fibrillation; E03.9 Hypothyroidism, unspecified; I48.92 Unspecified atrial flutter; I08.3 Combined rheumatic disorders of mitral, aortic and tricuspid valves; J44.9 Chronic obstructive pulmonary disease, unspecified; F40.240 Claustrophobia; K21.9 Gastro-esophageal reflux disease without esophagitis; Z20.822 Contact with and (suspected) exposure to COVID-19; M81.0 Age-related osteoporosis without current pathological fracture; Z90.49 Acquired absence of other specified parts of digestive tract; Z98.42 Cataract extraction status, left eye; Z98.41 Cataract extraction status, right eye; Z88.5 Allergy status to narcotic agent; Z88.8 Allergy status to other drugs, medicaments and biological substances; Z79.01 Long term (current) use of anticoagulants; Z79.899 Other long term (current) drug therapy; Z86.73 Personal history of transient ischemic attack (TIA), and cerebral infarction without residual deficits; I25.2 Old myocardial infarction
CPT/HCPCS: 36415; 71045; 71275; 80048; 80053; 81001; 83735; 84132; 84443; 84484; 85025; 85027; 87086; 87811; 92960; 93005; 93010; 93306; 96365; 96366; 96376; J0696; J1160; J1940; J2060; J2270; J2704; J3490; J7512; J8499; Q9967; U0002

== ENCOUNTER → 2022-05-19 | Emergency (ER) | payer MEDICARE ==
[~2022-05-19] MED LIST: Azithromycin 500 MG VIAL ONE; Lorazepam 2 MG/ML VIAL ONE; NOREPINEPHRINE 8 MG/250 ML-D5W 250 ML ONE; cefTRIAXone\\ROCEPHIN 2 GM VIAL ONE
[2022-05-19 16:02] LABS: #Basophils 0.1 10x3/uL (0.0-0.2); #Monocytes 1.1 10x3/uL (0.0-1.1); #Neutrophils 12.2 10x3/uL (1.5-8.4); %Basophils 0.4 % (0.0-2.0); %Lymphocytes 5.4 % (18.0-47.0); %Neutrophils 85.4 % (40.0-75.0); Mean Corpuscular HGB CONC 31.8 g/dL (32.0-36.0); Mean Corpuscular Hemoglobin 30.2 pg (27.0-33.0); Mean Corpuscular Volume 94.9 fl (81.6-98.3); Mean Platelet Volume 10.2 fl (7.4-10.4); Platelet Count 407 10x3/uL (150-450); RBC Distribution Width 16.1 % (11.5-14.5); Red Blood Cell (RBC) Count 4.31 10x6/uL (3.90-5.03); White Blood Cell (WBC) Count 14.3 10x3/uL (3.5-10.5)
[2022-05-19 16:32] LABS: SARS-CoV-2 NAA Rapid Test Not Detected (NotDetected)
[2022-05-19 16:44] LABS: CKMB 1.9 ng/mL (0-6.6)
[2022-05-19 17:13] LABS: Actual Bicarbonate (HCO3a) 18.4 mEq/L (22-28); Base Excess (BEa) -6.6 mEq/L (-2.0 to +3.0); CO2 Tension 35.1 mmHg (35.0-45.0); Calcium, Ionized (arterial) 1.06 mmol/L (1.12-1.30); Carboxyhemoglobin (COHb) 0.3 gm% (0.0-3.0); Hemoglobin (Hb) 13.5 g/dL (12.0-16.0); O2 Tension (PaO2), arterial 75.3 mmHg (> 60.0); Potassium - ABG Lab 4.7 mmol/L (3.70-5.30); Puncture Site RRA; pH, Arterial 7.34 (7.35-7.45)
[2022-05-19 17:14] LABS: ALV-art Gradient 237.325 mmHg (0-20)
== END ==
LOC: CSHERS 15:18
DX: I48.91 Unspecified atrial fibrillation (principal); I95.9 Hypotension, unspecified; Z20.822 Contact with and (suspected) exposure to COVID-19
CPT/HCPCS: 0241U; 36600; 71045; 82553; 82805; 83880; 84484; 85025; 93005; 96365; 96375; J0456; J0696; J2060; J7620